=== PATIENT | female | born 1995 | race Caucasian/White ===

== ENCOUNTER → 2019-11-03 | Outpatient (CLI) | payer OTHER ==
--- NOTE | 2019-11-03 12:50 | RADIOLOGY REPORT (SQ) ---
EXAM DESCRIPTION: CT ABD/PELVIS WITH IV ONLY COMPLETED DATE/TIME: 11/03/2019 10:19 am REASON FOR STUDY: UNSPECIFIED HYDRONEPHROSIS N13.30 UNSPECIFIED HYDRONEPHROSIS COMPARISON: None. TECHNIQUE: CT scan of the abdomen and pelvis performed using helical scanning technique with dynamic intravenous contrast injection. No oral contrast. Images reviewed with lung, soft tissue, and bone windows. Reconstructed coronal and sagittal MPR images reviewed. Delayed images for evaluation of the urinary system also acquired. All images stored on PACS. All CT scanners at this facility use dose modulation, iterative reconstruction, and/or weight based d osing when appropriate to reduce radiation dose to as low as reasonably achievable (ALARA). [facility]: Dose Right [facility]: CareDose [facility]: Dose Right [facility]: Teradose 4D [facility]: Elevation Lab CONTRAST TYPE AND DOSE: contrast/concentration: Isovue 350.00 mg/ml; Total Contrast Delivered: 57.0 ml; Total Saline Delivered: 56.0 ml RENAL FUNCTION: None required. The patient is less than 50 years old. RADIATION DOSE: CT Rad equipment meets quality standard of care and radiation dose reduction techniq ues were employed. CTDIvol: 2.5 - 3.5 mGy. DLP: 312 mGy-cm.. LIMITATIONS: None. FINDINGS: LOWER CHEST: No significant findings. No nodules or infiltrates. LIVER: Normal size. No masses. No dilated ducts. SPLEEN: Normal size. No focal lesions. PANCREAS: No masses. No significant calcifications. No adjacent inflammation or peripancreatic fluid collections. Pancreatic duct not dilated. GALLBLADDER: No identified stones by CT criteria. No inflammatory changes to suggest cholecystitis. ADRENAL GLANDS: No significant masses or asymmetry. RIGHT KIDNEY AND URETER: No solid masses. No significant calcifications. No hydronephrosis or hyd roureter. LEFT KIDNEY AND URETER: No solid masses. There is a 5 cm cystic lesion anteriorly in the mid to lowe r aspect of the kidney that enhances and shows layered contrast on the delayed images. No significa nt calcifications. No hydronephrosis or hydroureter. AORTA AND VESSELS: No aneurysm. No dissection. Renal arteries, SMA, celiac without stenosis. RETROPERITONEUM: No retroperitoneal adenopathy, hemorrhage or masses. BOWEL AND PERITONEAL CAVITY: Considerable retained stool. No bowel obstruction. No bowel mass. APPENDIX: Not identified. PELVIS: No mass. No free fluid. Normal bladder. ABDOMINAL WALL: No masses. No hernias. BONES: No significant or acute findings. OTHER: No other significant finding. IMPRESSION: 1. There is a 5 cm cystic lesion in the left kidney that demonstrates enhancement jori cteristics suggesting a dilated renal pelvis. If this represents a dilated renal pelvis then that wo uld suggest a chronic UPJ obstruction. There is no hydronephrosis. 2. Constipation. TECHNICAL DOCUMENTATION: JOB ID: [id number] Quality ID # 436: Final reports with documentation of one or more dose reduction techniques (e.g., Au tomated exposure control, adjustment of the mA and/or kV according to patient size, use of iterative reconstruction technique) 2010 [employer]- All Rights Reserved Reading location - IP/workstation name: [email or web address]
== END ==
LOC: RAD 09:58
PROVIDERS: ATTEND Urology
DX: N13.30 Unspecified hydronephrosis (principal)
CPT/HCPCS: 74177

== ENCOUNTER → 2019-12-06 | Outpatient (CLI) | payer OTHER ==
--- NOTE | 2019-12-06 15:13 | RADIOLOGY REPORT (SQ) ---
EXAM DESCRIPTION: NM RENAL WITH LASIX COMPLETED DATE/TIME: 12/06/2019 1:08 pm REASON FOR STUDY: HYDRONEPHROSIS LEFT KIDNEY (N13.30), URETEROPELVIC JUNCTION OBSTRUCTION, CO N13.30 UNSPECIFIED HYDRONEPHROSIS COMPARISON: CT from recently. RADIONUCLIDE AND DOSE: 5.2 millicuries Tc-99m MAG 3 The route of agent administration: Intravenous ADDITIONAL DRUGS AND DOSES: Lasix 20 mg. TECHNIQUE: Following administration of the radionuclide, flow images of the kidneys were acquired fo llowed by sequential imaging for 30 minutes. Intravenous Lasix was given at the midpoint of the study . Time activity curves were generated. LIMITATIONS: None. FINDINGS: ACTIVITY LEFT KIDNEY: 51 %. ACTIVITY RIGHT KIDNEY: 49 %. Right: Time to peak is 9.2 minutes with T 1/2 of 2.7 minutes. Activity has diminished to 7% by 20 m inutes. Left: Delayed time to peak, 16.5 minutes with T 1/2 of 9.3 minutes. Activity significantly retained at 20 minutes, 52% IMPRESSION: Findings consistent with some degree of left renal obstruction. Delayed time to peak wi th considerable persistent activity by the end of the study. TECHNICAL DOCUMENTATION: JOB ID: [id number] 2010 [employer]- All Rights Reserved Reading location - IP/workstation name: [email or web address]
== END ==
LOC: RAD 11:01
PROVIDERS: ATTEND Urology
DX: N13.30 Unspecified hydronephrosis (principal); N28.89 Other specified disorders of kidney and ureter
CPT/HCPCS: 78708; A9562

== ENCOUNTER 2020-06-03 06:11 | Emergency (ER) | payer OTHER ==
[2020-06-03] MEDS ORDERED: NORMAL SALINE 1000 ML 1,000 ML IV ONE ×2 (08:39→08:40)
[2020-06-03] MEDS ORDERED: HYDROMORPHONE HCL INJ/PF 2 MG/ML AMPULE IV ONE ×2 (08:44→11:50)
[2020-06-03] MEDS ORDERED: ONDANSETRON HCL INJ/PF 4 MG/2 ML SDV IV ONE (08:45)
[2020-06-03 08:50] LABS: ABSOLUTE LYMPHOCYTES (AUTO) 0.6 10^3/uL (0.5-4.7); ABSOLUTE MONOCYTES (AUTO) 0.5 10^3/uL (0.1-1.4); ABSOLUTE NEUT (AUTO) 8.4 10^3/uL (1.7-8.2); BASOPHILS % (AUTO) 0.1 % (0-2); EOSINOPHILS % (AUTO) 0.2 % (0-6); HEMATOCRIT 40.3 % (36.0-47.0); LYMPHOCYTES % (AUTO) 5.9 % (13-45); MEAN CORPUSCULAR HEMOGLOBIN 31.2 pg (27.0-33.4); MEAN CORPUSCULAR HGB CONC 34.7 g/dL (32.0-36.0); MEAN CORPUSCULAR VOLUME 90 fl (80-97); MONOCYTES % (AUTO) 5.7 % (3-13); PLATELET COUNT 158 10^3/uL (150-450); RED BLOOD COUNT 4.48 10^6/uL (3.72-5.28); RED CELL DISTRIBUTION WIDTH 12.3 % (11.5-14.0); SEGMENTED NEUTROPHILS % (AUTO) 88.1 % (42-78); TOTAL CELLS COUNTED % (AUTO) 100 %; WHITE BLOOD COUNT 9.5 10^3/uL (4.0-10.5)
[2020-06-03 08:53] LABS: ALBUMIN 4.3 g/dL (3.5-5.0); ALKALINE PHOSPHATASE 60 U/L (38-126); ANION GAP 9 (5-19); ASPARTATE AMINO TRANSFERASE 25 U/L (14-36); BILIRUBIN,DIRECT 0.4 mg/dL (0.0-0.4); BILIRUBIN,TOTAL 0.7 mg/dL (0.2-1.3); BLOOD UREA NITROGEN 15 mg/dL (7-20); CALCIUM 9.5 mg/dL (8.4-10.2); CARBON DIOXIDE 28 mmol/L (22-30); CHLORIDE 102 mmol/L (98-107); GLUCOSE 123 mg/dL (75-110); POTASSIUM 3.8 mmol/L (3.6-5.0); TOTAL PROTEIN 6.8 g/dL (6.3-8.2)
[2020-06-03 10:55] LABS: APPEARANCE,URINE CLOUDY; BILIRUBIN,URINE NEGATIVE (NEGATIVE); COLOR,URINE YELLOW; GLUCOSE, URINE NEGATIVE (NEGATIVE); KETONES,URINE 20 mg/dL (NEGATIVE); LEUKOCYTE ESTERASE,URINE MODERATE (NEGATIVE); NITRITE,URINE NEGATIVE (NEGATIVE); PROTEIN,URINE 30 mg/dL (NEGATIVE); URINE SPECIFIC GRAVITY 1.023; UROBILINOGEN,URINE NEGATIVE mg/dL (<2.0)
[2020-06-03] MEDS ORDERED: CEFTRIAXONE 1 GM/D5W RTU 1 GM/50 ML RTUPB IV ONE (11:10)
--- NOTE | 2020-06-03 11:33 | RADIOLOGY REPORT (SQ) ---
EXAM DESCRIPTION: CT ABD/PELVIS WITH IV ORAL IMAGES COMPLETED DATE/TIME: 06/03/2020 11:09 am REASON FOR STUDY: post op left abd pain/UPJ ureter repair with stent COMPARISON: 11/03/2019 TECHNIQUE: CT scan of the abdomen and pelvis performed using helical scanning technique with dynamic intravenous contrast injection. No oral contrast. Images reviewed with lung, soft tissue, and bone windows. Reconstructed coronal and sagittal MPR images reviewed. Delayed images for evaluation of the urinary system also acquired. All images stored on PACS. All CT scanners at this facility use dose modulation, iterative reconstruction, and/or weight based d osing when appropriate to reduce radiation dose to as low as reasonably achievable (ALARA). [facility]: Dose Right [facility]: CareDose [facility]: Dose Right [facility]: Teradose 4D [facility]: Revstr CONTRAST TYPE AND DOSE: contrast/concentration: Isovue 350.00 mmol/ml; Total Contrast Delivered: 60. 0 ml; Total Saline Delivered: 65.0 ml RENAL FUNCTION: GFR > 60. RADIATION DOSE: CT Rad equipment meets quality standard of care and radiation dose reduction techniq ues were employed. CTDIvol: NaN - NaN mGy. DLP: 0 mGy-cm.. LIMITATIONS: None. FINDINGS: LOWER CHEST: No significant findings. No nodules or infiltrates. LIVER: Normal size. No masses. No dilated ducts. SPLEEN: Normal size. No focal lesions. PANCREAS: No masses. No significant calcifications. No adjacent inflammation or peripancreatic fluid collections. Pancreatic duct not dilated. GALLBLADDER: No identified stones by CT criteria. No inflammatory changes to suggest cholecystitis. ADRENAL GLANDS: No significant masses or asymmetry. RIGHT KIDNEY AND URETER: No solid masses. No significant calcification. No hydronephrosis or hydroure ter. LEFT KIDNEY AND URETER: Pronounced hydronephrosis. Ureteral stent in place. Repeat imaging through the abdomen with delays shows persistent left nephrogram and contrast pooling in the dilated dependen t collecting system. AORTA AND VESSELS: No aneurysm. No dissection. Renal arteries, SMA, celiac without stenosis. RETROPERITONEUM: No retroperitoneal adenopathy, hemorrhage or masses. BOWEL AND PERITONEAL CAVITY: No evidence of mechanical bowel obstruction. There is free air in the a bdomen and subcutaneous emphysema in the ventral abdominal wall. Consistent with the history of rece nt reported surgery. Ascites in the pelvis, moderate fluid looks simple. Also likely postoperative in etiology. APPENDIX: Normal. PELVIS: As above. Distal ureteral stent well positioned within the bladder. No bladder mass or ston es detected. ABDOMINAL WALL: No masses. No hernias. BONES: No significant or acute findings. OTHER: No other significant finding. IMPRESSION: 1. Despite reported recent UPJ surgery and ureteral stent in place, there is delayed left nephrogram and marked left hydronephrosis. TECHNICAL DOCUMENTATION: JOB ID: [id number] Quality ID # [id number]: Final reports with documentation of one or more dose reduction techniques (e.g., Au tomated exposure control, adjustment of the mA and/or kV according to patient size, use of iterative reconstruction technique) 2010 [employer]- All Rights Reserved Reading location - IP/workstation name: [email or web address]
--- NOTE | 2020-06-03 13:29 | ER Document Report ---
Entered by RAFAEL ROSS SCRIBE 06/03/20 0823 Acting as scribe for:ALFREDO VILLARREAL MD ED GI/ - General Chief Complaint: Post Surgical Pain Stated Complaint: POST OP PAIN//PAINFUL URINATION Time Seen by Provider: 06/03/20 07:37 Primary Care Provider: KENDAL PEARSON MD [Primary Care Provider] - Follow up as needed Mode of Arrival: Ambulatory Information source: Patient Notes: This 25-year-old female patient s/p left renal stent placement for UPJ obstruction on May 30, 2020 at [facility] presents to the emergency department today with complaints of increased pain in her abdomen and left flank. Patient reports she has had pain since the procedure but it has been tolerable until 3:00 AM when her pain became worse. Patient has not had a bowel movement in the last few days and she has been taking Bellerose for her pain. Pat ient states she has "tried" to stay hydrated but when she "drinks water her left side hurts more". She denies fever, chills, or dysuria. TRAVEL OUTSIDE OF THE [place] IN LAST 30 DAYS: No - Related Data Allergies/Adverse Reactions: No Known Allergies Allergy (Unverified 09/16/19 10:10) Home Medications: Docusate 100mg. Bellerose Past Medical History - General Information source: Patient - Social History Smoking Status: Never Smoker Cigarette use (# per day): No Chew tobacco use (# tins/day): No Frequency of alcohol use: None Drug Abuse: None Lives with: Spouse/Significant other Family History: None, Reviewed & Not Pertinent Renal/ Medical History: Reports: Other - Hx of UPJ obstruction s/p stent placement Past Surgical History: Reports: Hx Kidney (Renal Surgery) - UPJ obstruction, stent placed - Immunizations Hx Diphtheria, Pertussis, Tetanus Vaccination: No Review of Systems - Review of Systems Constitutional: No symptoms reported EENT: No symptoms reported Cardiovascular: No symptoms reported Respiratory: No symptoms reported Gastrointestinal: See HPI, Abdominal pain Genitourinary: See HPI, Dysuria, Flank pain. denies: Hematuria Female Genitourinary: No symptoms reported Musculoskeletal: No symptoms reported Skin: No symptoms reported Hematologic/Lymphatic: No symptoms reported Neurological/Psychological: No symptoms reported -: Yes All other systems reviewed and negative Physical Exam - Vital signs Vitals: Temp Pulse Resp BP Pulse Ox 97.6 F 86 24 H 132/87 H 97 06/03/20 06:16 06/03/20 06:16 06/03/20 06:16 06/03/20 06:16 06/03/20 06:16 - Notes Notes: Physical Exam: General: Alert, appears uncomfortable. HEENT: Normocephalic. Atraumatic. PERRL. Extraocular movements intact. Oropharynx clear. Neck: Supple. Non-tender. Respiratory: No respiratory distress. Clear and equal breath sounds bilaterally. Cardiovascular: Regular rate and rhythm. Abdominal: Four port incisions appear clean, dry, and intact. There is mild diffuse tenderness to palpation. No distension. Normal Bowel Sounds. Back: No gross abnormalities. Extremities: Moves all four extremities. Upper extremities: Normal inspection. Normal ROM. Lower extremities: Normal inspection. No edema. Normal ROM. Neurological: Normal cognition. AAOx4. Normal speech. Psychological: Normal affect. Normal Mood. Skin: Warm. Dry. Normal color. Course - Re-evaluation Re-evalutation: 06/03/20 13:02 Patient's pain has improved though not completely resolved. 06/03/20 13:[address] Chavez who is the on-call urologist colleague of Dr. Rose who was the surgeon who. Who performed the procedure of the stent placement on patient on Friday 5 days ago. Based on my presentation of patient's complaints exam CT scan reports and laboratory reports Dr. Chavez stated that patient could be followed with Dr. Rose on Friday as an outpatient that we should certainly treat her condition with increased pain management and antibiotic for UTI. Patient is instructed if she has worsening fever or chills or worsening pain breakthrough that she should perhaps return sooner for care if things are not progressing as expected. - Vital Signs Vital signs: Temp Pulse Resp BP Pulse Ox 97.6 F 86 24 H 132/87 H 97 06/03/20 06:16 06/03/20 06:16 06/03/20 06:16 06/03/20 06:16 06/03/20 06:16 06/03/20 13:03 Vital signs are stable. - Laboratory Result Diagrams: 06/03/20 08:08 06/03/20 08:08 Laboratory results interpreted by me: 06/03/20 06/03/2020 08:08 08:08 10:10 Lymph % (Auto) 5.9 L Absolute Neuts (auto) 8.4 H Seg Neutrophils % 88.1 H Glucose 123 H Urine Protein 30 H Urine Ketones 20 H Urine Blood LARGE H Ur Leukocyte Esterase MODERATE H Laboratory shows large amount of blood moderate leukocyte esterase noted in urine of note patient is postop 5 days ago from having a ureteral stent placed for UPJ junction obstruction. - Diagnostic Test Radiology reviewed: Image reviewed, Reports reviewed Radiology results interpreted by me: 06/03/20 13:03 CT scan of abdomen and pelvis with oral and IV contrast shows that patient has evidence of postop changes over the left side of her abdomen wall a stent is noted to be in place in the ureter and drain into the bladder of note there is marked hydronephrosis on the left side noted on the nephrogram; there is fluid in the pelvis again thought to be due to the recent surgery and the free air in the soft tissues again all related to recent surgery. Discharge - Discharge Clinical Impression: Postoperative pain, Urinary tract infection Condition: Stable Disposition: HOME, SELF-CARE Instructions: Nitrofurantoin ([facility]), Urinary Tract Infection ([facility]) Prescriptions: Ondansetron [Zofran Odt 4 mg Tablet] 1 - 2 tab PO Q4HP PRN #20 tab.rapdis PRN Reason: Nitrofurantoin Monohyd/M-Cryst [Macrobid 100 mg Capsule] 100 mg PO BID #20 cap Oxycodone HCl/Acetaminophen [Percocet 5-325 mg Tablet] 1 tab PO QID PRN #20 tab PRN Reason: For Pain Referrals: KENDAL PEARSON MD [Primary Care Provider] - Follow up as needed I personally performed the services described in the documentation, reviewed and edited the documentation which was dictated to the scribe in my presence, and it accurately records my words and actions.
[2020-06-03 13:55] VITALS: BP 132/80
== END 2020-06-03 13:56 | disposition home or self-care (01) ==
LOC: ER 06:11
DX: G89.18 Other acute postprocedural pain (principal); N39.0 Urinary tract infection, site not specified; R30.0 Dysuria; R10.9 Unspecified abdominal pain
CPT/HCPCS: 96376; 99285; 96361; 96375; 96365; 36415; 87040; 87086; 83605; 83690; 85025; 81025; 80053; 81001; 74177; J1170; J2405; J7030; J0696

== ENCOUNTER 2020-06-05 14:12 | Emergency (ER) | payer OTHER ==
[2020-06-05 14:18] VITALS: BP 133/87
--- NOTE | 2020-06-05 14:28 | ER Document Report ---
ED Medical Screen (RME) - General Chief Complaint: Post Surgical Pain Stated Complaint: POST SURGICAL PAIN Time Seen by Provider: 06/05/20 14:22 Primary Care Provider: KENDAL PEARSON MD [Primary Care Provider] - Follow up as needed TRAVEL OUTSIDE OF THE [place] IN LAST 30 DAYS: No - HPI Notes: 06/05/20 14:27 25-year-old female to the emergency department with significant other with complaints of left flank, left hip pain and inability to get comfortable since she had a stent placed on this past Friday by Dr. Roman at [facility]. She had the stent placed for UPJ obstruction and hydronephrosis. She was given [place] by Dr. Roman but that did not control her pain. She was seen here 2 days ago for her pain was placed on oxycodone 5 mg every 4 hours but has not had any control. She states that despite taking it pretty regularly she has a 5 out of 5 pain at all times. She states that she has been vomiting. They do not think that she has been running a fever. She had a CT scan 2 days ago and lab work that showed a UTI. Patient in significant pain in triage. I performed a brief medical screening exam on the patient determined that the patient needs further evaluation and management by main side provider. I have placed initial orders to help expedite care. - Related Data Allergies/Adverse Reactions: No Known Allergies Allergy (Unverified 09/16/19 10:10) Past Medical History - Past Medical History Cardiac Medical History: Denies: Hx Coronary Artery Disease, Hx Heart Attack, Hx Hypertension Pulmonary Medical History: Denies: Hx Asthma, Hx Bronchitis, Hx COPD, Hx Pneumonia Neurological Medical History: Denies: Hx Cerebrovascular Accident, Hx Seizures Musculoskeltal Medical History: Denies Hx Arthritis Past Surgical History: Reports: Hx Kidney (Renal Surgery) - UPJ obstruction, stent placed - Immunizations Hx Diphtheria, Pertussis, Tetanus Vaccination: No Physical Exam - Vital signs Vitals: Temp Pulse Resp BP Pulse Ox 99.6 F 120 H 20 133/87 H 100 06/05/20 14:17 06/05/20 14:17 06/05/20 14:17 06/05/20 14:17 06/05/20 14:17 Course - Vital Signs Vital signs: Temp Pulse Resp BP Pulse Ox 99.6 F 120 H 20 133/87 H 100 06/05/20 14:17 06/05/20 14:17 06/05/20 14:17 06/05/20 14:17 06/05/20 14:17 Doctor's Discharge - Discharge Referrals: KENDAL PEARSON MD [Primary Care Provider] - Follow up as needed
[2020-06-05 14:53] LABS: ABSOLUTE LYMPHOCYTES (AUTO) 0.6 10^3/uL (0.5-4.7); ABSOLUTE MONOCYTES (AUTO) 0.7 10^3/uL (0.1-1.4); ABSOLUTE NEUT (AUTO) 8.6 10^3/uL (1.7-8.2); BASOPHILS % (AUTO) 0.3 % (0-2); EOSINOPHILS % (AUTO) 0.1 % (0-6); HEMATOCRIT 39.9 % (36.0-47.0); MEAN CORPUSCULAR HEMOGLOBIN 31.5 pg (27.0-33.4); MEAN CORPUSCULAR HGB CONC 35.1 g/dL (32.0-36.0); MEAN CORPUSCULAR VOLUME 90 fl (80-97); MONOCYTES % (AUTO) 7.4 % (3-13); PLATELET COUNT 198 10^3/uL (150-450); RED BLOOD COUNT 4.45 10^6/uL (3.72-5.28); RED CELL DISTRIBUTION WIDTH 12.5 % (11.5-14.0); SEGMENTED NEUTROPHILS % (AUTO) 86.2 % (42-78); TOTAL CELLS COUNTED % (AUTO) 100 %
[2020-06-05 15:04] LABS: APPEARANCE,URINE CLEAR; BILIRUBIN,URINE NEGATIVE (NEGATIVE); COLOR,URINE STRAW; GLUCOSE, URINE NEGATIVE (NEGATIVE); KETONES,URINE 80 mg/dL (NEGATIVE); LEUKOCYTE ESTERASE,URINE TRACE (NEGATIVE); NITRITE,URINE NEGATIVE (NEGATIVE); PROTEIN,URINE NEGATIVE (NEGATIVE); URINE SPECIFIC GRAVITY 1.006; UROBILINOGEN,URINE NEGATIVE mg/dL (<2.0)
[2020-06-05 15:13] LABS: ALBUMIN 4.3 g/dL (3.5-5.0); ALKALINE PHOSPHATASE 69 U/L (38-126); ANION GAP 12 (5-19); ASPARTATE AMINO TRANSFERASE 22 U/L (14-36); BILIRUBIN,DIRECT 0.3 mg/dL (0.0-0.4); BILIRUBIN,TOTAL 0.9 mg/dL (0.2-1.3); BLOOD UREA NITROGEN 13 mg/dL (7-20); CALCIUM 9.6 mg/dL (8.4-10.2); CARBON DIOXIDE 28 mmol/L (22-30); CHLORIDE 94 mmol/L (98-107); GLUCOSE 109 mg/dL (75-110); POTASSIUM 4.1 mmol/L (3.6-5.0)
[2020-06-05] MEDS ORDERED: NORMAL SALINE 1000 ML 1,000 ML IV ONE (15:50)
[2020-06-05] MEDS ORDERED: HYDROMORPHONE HCL INJ/PF 2 MG/ML AMPULE IV ONE ×2 (15:51→17:04)
[2020-06-05] MEDS ORDERED: ONDANSETRON HCL INJ/PF 4 MG/2 ML SDV IV ONE (15:51)
[2020-06-05] MEDS ORDERED: KETOROLAC TROMETHAMINE INJ/PF 30 MG/1 ML SDV IV ONE (15:51)
--- NOTE | 2020-06-05 15:55 | ER Document Report ---
ED General - General Chief Complaint: Post Surgical Pain Stated Complaint: POST SURGICAL PAIN Time Seen by Provider: 06/05/20 14:22 Primary Care Provider: KENDAL PEARSON MD [NO LOCAL MD] - Follow up as needed Notes: Patient presents with severe left flank and low abdominal pain. Worse with movement every bump on the way here hurt her, the pain is been increasing even though she had a couple days of comfort after her ureteral reimplantation done laparoscopically at [facility]. She was seen here yesterday CT showed continued hydronephrosis urology was consulted thought it to be a pain control issue so she was given medication and sent home. She denies fever. The pain is simply worsened and she cannot tolerate anymore. She has some nausea and is decreased oral intake. Arrives tachycardic but not febrile. TRAVEL OUTSIDE OF THE [place] IN LAST 30 DAYS: No - Related Data Allergies/Adverse Reactions: No Known Allergies Allergy (Unverified 09/16/19 10:10) Past Medical History - General Information source: Patient - Social History Smoking Status: Never Smoker Frequency of alcohol use: None Drug Abuse: None Family History: None, Reviewed & Not Pertinent - Past Medical History Cardiac Medical History: Denies: Hx Coronary Artery Disease, Hx Heart Attack, Hx Hypertension Pulmonary Medical History: Denies: Hx Asthma, Hx Bronchitis, Hx COPD, Hx Pneumonia Neurological Medical History: Denies: Hx Cerebrovascular Accident, Hx Seizures Musculoskeletal Medical History: Denies Hx Arthritis Past Surgical History: Reports: Hx Kidney (Renal Surgery) - UPJ obstruction, stent placed - Immunizations Hx Diphtheria, Pertussis, Tetanus Vaccination: No Review of Systems - Review of Systems Notes: REVIEW OF SYSTEMS GEN: Weakness ENT: Denies sore throat, nasal discharge, ear pain EYES: Denies blurry vision, eye pain, discharge CV: Denies chest pain, palpitations, edema RESP: Denies cough, shortness of breath, wheezing GI: Nominal pain nausea MSK: Denies joint pain/swelling, edema, SKIN: Denies rash, skin lesions LYMPH: Denies swollen glands/lymph nodes NEURO: Denies headache, focal weakness or numbness, dizziness PSYCH: Denies depression, suicidal or homicidal ideation PHYSICAL EXAMINATION General: Appears dehydrated Head: Atraumatic, normocephalic ENT: Mouth normal, oropharynx moist, no exudates or tonsillar enlargement Eyes: Conjunctiva normal, pupils equal, lids normal Neck: No JVD, supple, no guarding CVS: Cardiac Resp: No resp distress, equal and normal breath sounds bilaterally GI: Fairly tender in the left lower quadrant at the site of laparoscopic ports with guarding and rebound Ext: No deformities, no edema, normal range of motion in upper and lower ext Back: No CVA or midline TTP Skin: No rash, warm Lymphatic: No lymphadeopathy noted Neuro: Awake, alert. Face symmetric. GCS 15. Physical Exam - Vital signs Vitals: Temp Pulse Resp BP Pulse Ox 99.6 F 120 H 20 133/87 H 100 06/05/20 14:17 06/05/20 14:17 06/05/20 14:17 06/05/20 14:17 06/05/20 14:17 Course - Re-evaluation Re-evalutation: 06/05/20 17:05 Patient presents with increasing pain and a peritoneal abdominal exam is concerning for infection, perforation, urine leak Already on antibiotics for pyelonephritis. Labs are normal rectal temp does not show fever. Tachycardia got better with fluids. Do not suspect sepsis but I am concerned about an operative co mplication such as a urine leak. Emanuel was placed pain medicine were given. On reassessment the heart rate is come down and she feels better. Discussed with Dr. Rodriguez urology at [facility] to asked for a Emanuel and accepted the patient for transfer. I reassessed her at 5:05 PM. Give second dose of pain meds prior to leaving with S. - Vital Signs Vital signs: Temp Pulse Resp BP Pulse Ox 99.2 F 120 H 20 133/87 H 100 06/05/20 16:01 06/05/20 14:17 06/05/20 14:17 06/05/20 14:17 06/05/20 14:17 - Laboratory Result Diagrams: 06/05/20 14:39 06/05/20 14:39 Laboratory results interpreted by me: 06/05/20 06/05/20 06/05/20 14:39 14:39 14:39 Lymph % (Auto) 6.0 L Absolute Neuts (auto) 8.6 H Seg Neutrophils % 86.2 H Sodium 133.6 L Chloride 94 L Urine Ketones 80 H Urine Blood MODERATE H Ur Leukocyte Esterase TRACE H Discharge - Discharge Clinical Impression: Peritonitis Condition: Good Disposition: [facility] Referrals: KENDAL PEARSON MD [NO LOCAL MD] - Follow up as needed
== END 2020-06-05 17:18 | disposition short-term general hospital (02) ==
LOC: ER 14:12
DX: K65.9 Peritonitis, unspecified (principal); R11.0 Nausea; G89.18 Other acute postprocedural pain; R10.30 Lower abdominal pain, unspecified
CPT/HCPCS: 96376; 99284; 96361; 51702; 96374; 96375; 36415; 87040; 87086; 85025; 80053; 81001; J1885; J1170; J2405; J7030